=== PATIENT | male | born 1990 | race Caucasian/White ===

== ENCOUNTER 2017-10-26 14:38 | Emergency (ER) | payer OTHER ==
--- NOTE | 2017-10-26 14:41 | ED PDOC ---
Arrival/HPI - General Time Seen by Provider: 10/26/17 14:40 Historian: Patient - History of Present Illness Narrative History of Present Illness (Text): 10/26/17 14:41 27 y/o male, no significant pmh, nkda, c/o Lt. upper eyelid swelling painful lump x 5 days. Pt. stated that it started off as a small painful lump, aggravated by touching, more worsening today, no change in vision, no painful movement of the eye, no headache or neck pain, no other medical or psychological complaints. Past Medical History - Provider Review Nursing Documentation Reviewed: Yes - Infectious Disease Hx of Infectious Diseases: None - Psychiatric Hx Substance Use: No Family/Social History - Physician Review Nursing Documentation Reviewed: Yes Family/Social History: Unknown Family HX Smoking Status: Never Smoked Hx Alcohol Use: No Hx Substance Use: No Allergies/Home Meds Allergies/Adverse Reactions: Allergies No Known Allergies Allergy (Verified 10/26/17 14:54) Review of Systems - Review of Systems Constitutional: absent: Fatigue, Fevers Eyes: absent: Vision Changes ENT: absent: Hearing Changes Respiratory: absent: SOB, Cough Cardiovascular: absent: Chest Pain Gastrointestinal: absent: Abdominal Pain, Nausea, Vomiting Skin: Rash, Skin Lesions. absent: Pruritis, Laceration, Abscess, Ulcer Neurological: absent: Headache, Dizziness Psychiatric: absent: Anxiety, Depression, Suicidal Ideation Physical Exam Vital Signs Reviewed: Yes Vital Signs Temp Pulse Resp BP Pulse Ox 10/26/17 14:58 98.5 F 85 18 128/78 96 10/26/17 14:55 98.5 F 81 18 128/78 97 Temperature: Afebrile Blood Pressure: Normal Pulse: Regular Respiratory Rate: Normal Appearance: Positive for: Well-Appearing, Non-Toxic, Comfortable Pain Distress: Mild Mental Status: Positive for: Alert and Oriented X 3 - Systems Exam Head: Present: Atraumatic, Normocephalic Pupils: Present: PERRL Extroacular Muscles: Present: EOMI Conjunctiva: Present: Normal, Other (Lt eye: visible stye noted on the lt. upper lateral region approx. 0.5cm diameter noted with erythematous noted on the lt. upper eyelid region, no streaking, no painful movement of the eyes, no conjunctivitis. ) Neck: Present: Normal Range of Motion Respiratory/Chest: Present: Clear to Auscultation, Good Air Exchange. No: Respiratory Distress, Accessory Muscle Use Cardiovascular: Present: Regular Rate and Rhythm, Normal S1, S2. No: Murmurs Abdomen: Present: Normal Bowel Sounds. No: Tenderness, Distention, Peritoneal Signs Back: Present: Normal Inspection Upper Extremity: Present: Normal Inspection. No: Cyanosis, Edema Lower Extremity: Present: Normal Inspection. No: Edema Neurological: Present: GCS=15, CN II-XII Intact, Speech Normal Skin: Present: Warm, Dry, Normal Color. No: Rashes Psychiatric: Present: Alert, Oriented x 3, Normal Insight, Normal Concentration Medical Decision Making ED Course and Treatment: 10/26/17 15:17 -augmentin/erythromycin/motrin -Discharge home with augmentin, motrin, erythromycin ointment, warm compress, follow up with your own pmd and opthalmologist within 2 days, return to the ER for any new or worsening signs or symptoms. - PA / PHARMACEUTICAL WORKER / Resident Statement MD/DO has reviewed & agrees with the documentation as recorded. Disposition/Present on Arrival - Present on Arrival Any Indicators Present on Arrival: No History of DVT/PE: No History of Uncontrolled Diabetes: No Urinary Catheter: No History of Decub. Ulcer: No History Surgical Site Infection Following: None - Disposition Have Diagnosis and Disposition been Completed?: Yes Diagnosis: Stye, Preseptal cellulitis of left upper eyelid Disposition: HOME/ ROUTINE Disposition Time: 15:19 Patient Plan: Discharge Condition: GOOD Additional Instructions: -Discharge home with augmentin, motrin, erythromycin ointment, warm compress, follow up with your own pmd and opthalmologist within 2 days, return to the ER for any new or worsening signs or symptoms. Prescriptions: Amoxicillin/Clavulanate [Augmentin 875 MG-125 MG] 1 tab PO BID #20 tab Erythromycin 0.5% [Ilytocin] 1 appful OP QID #5 g Ibuprofen [Motrin Tab] 600 mg PO QID PRN #30 tab PRN Reason: Other Referrals: Kali Bell MD [Staff Provider] - Follow up with primary Forms: WORK NOTE
[2017-10-26] MEDS ORDERED: Amoxicillin-Clav 875-125 mg Tab PO STA (15:12)
[2017-10-26] MEDS ORDERED: Erythromycin 0.5% Ophth Oint 1 APPLIC/3.5 G OU ONE (15:12)
[2017-10-26 15:33] VITALS: RESP 18; TEMP 98.5; BMI 32.5
[2017-10-26 15:56] VITALS: BP 125/71; PULSE 79; O2SAT 98
== END 2017-10-26 16:00 | disposition home or self-care (01) ==
LOC: ED 14:38
DX: H00.024 Hordeolum internum left upper eyelid (principal); L03.213 Periorbital cellulitis